=== PATIENT | male | born 1955 | race Caucasian/White ===

== ENCOUNTER 2017-12-31 12:42 | Emergency (ER) | payer OTHER ==
[~2017-12-31] VITALS: Ht 167.6 cm; Wt 95.7 kg
[2017-12-31 13:07] VITALS: Ht 167.6 cm; Wt 95.7 kg
[2017-12-31 16:28] VITALS: BP 131/96
== END 2017-12-31 16:28 | disposition home or self-care (01) ==
LOC: ED 12:42
DX: M54.12 Radiculopathy, cervical region (principal); I10 Essential (primary) hypertension; E11.9 Type 2 diabetes mellitus without complications
CPT/HCPCS: J1100; J2270; Q0162